=== PATIENT | female | born 1990 | race Caucasian/White ===

== ENCOUNTER 2022-12-29 14:39 | Emergency (ER) | payer OTHER ==
[~2022-12-29] VITALS: Ht 160 cm; Wt 70.0 kg
[2022-12-29] MEDS ORDERED: KETOROLAC 30MG/ML VIAL IV STA (15:39)
[2022-12-29] MEDS ORDERED: SODIUM CHLORIDE 0.9% 1,000 ML IV ONE (15:45)
[2022-12-29 16:12] LABS: BASOPHILS % 0.4 % (0.0-2.0); EOSINOPHILS % 0.4 % (0.0-5.0); HEMATOCRIT. 37.1 % (36.0-48.0); HEMOGLOBIN. 12.8 g/dL (12.0-16.0); MEAN CORPUSCULAR HEMOGLOBIN 34.7 pg (28.0-32.0); MEAN CORPUSCULAR VOLUME 100.5 fL (81.0-99.0); MEAN PLATELET VOLUME 8.8 fl (7.4-10.4); MONOCYTES % 6.8 % (2.0-8.0); NEUTROPHILS % 80.4 % (40.0-76.0); PLATELET 161 x1000/uL (130-400); RED BLOOD CELL COUNT 3.69 mill/uL (4.2-5.4); RED CELL DISTRIBUTION WIDTH 13.4 % (11.6-14.6)
[2022-12-29 16:19] LABS: CHLORIDE 106 mEq/L (98-107)
[2022-12-29 16:20] LABS: HCG SCREEN NEGATIVE
[2022-12-29 16:33] LABS: CREATINE KINASE 162 IU/L (26-192); ETHANOL BLOOD 81 mg/dL
[2022-12-29] MEDS ORDERED: IOHEXOL-350 100 ML BOTTLE ONE (17:01)
[2022-12-29] MEDS ORDERED: ONDANSETRON HCL 4MG/2ML INJ IV STA (17:33)
[2022-12-29] MEDS ORDERED: MORPHINE SULFATE 4 MG/ML CPJ (NOT FOR IM USE) IV STA (17:33)
[2022-12-29] MEDS ORDERED: MORPHINE SULFATE 4 MG/ML CPJ (NOT FOR IM USE) IV ONE (22:45)
[2022-12-29] MEDS ORDERED: ONDANSETRON HCL 4MG/2ML INJ IV ONE (22:45)
[2022-12-29 23:01] VITALS: BP 140/97
== END 2022-12-29 22:30 | disposition short-term general hospital (02) ==
LOC: ER 14:45
DX: S22.41XA Multiple fractures of ribs, right side, initial encounter for closed fracture (principal); S22.080A Wedge compression fracture of T11-T12 vertebra, initial encounter for closed fracture; T14.8XXA Other injury of unspecified body region, initial encounter; Z20.822 Contact with and (suspected) exposure to COVID-19; X58.XXXA Exposure to other specified factors, initial encounter; Y93.89 Activity, other specified; Y92.89 Other specified places as the place of occurrence of the external cause; Y99.8 Other external cause status; R07.89 Other chest pain; J93.9 Pneumothorax, unspecified
CPT/HCPCS: 36415; 70450; 70486; 71045; 71260; 74177; 80053; 80320; 82550; 83690; 83880; 84484; 84703; 85025; 87426; 93005; 96361; 96374; 96375; 96376; 99291; C9803; J1885; J2270; J2405; J7030; Q9967; Z7610; G0480